=== PATIENT | male | born 1995 | race Caucasian/White ===

== ENCOUNTER 2017-04-12 22:12 | Emergency (ER) | payer OTHER ==
[~2017-04-12] VITALS: Ht 172.7 cm; Wt 64.0 kg
[2017-04-12 22:12] VITALS: TEMP 37; O2SAT 97; Ht 172.7 cm; Wt 64.0 kg
[2017-04-12] MEDS ORDERED: LIDOCAINE HCL 2% VISC SOLN 20 ML UDC PO STA (22:25)
[2017-04-12] MEDS ORDERED: SODIUM CHLORIDE 0.9% 1000ML 1,000 ML IV STA (22:25)
[2017-04-12] MEDS ORDERED: ALUMINUM/MAGNESIUM SUSP 30 ML UDC PO STA (22:25)
--- NOTE | 2017-04-12 22:42 | DIAGNOSTIC IMAGING REPORT ---
CHEST ONE VIEW PORTABLE CLINICAL HISTORY: Chest pain. COMPARISON STUDY: Chest radiograph June 30, 2016. FINDINGS: Lung volumes are normal. There is no pneumothorax or pleural effusion. Cardiac size is normal. Mediastinal contours are normal. There is no evidence of pulmonary edema. Lungs are clear. IMPRESSION: No acute cardiopulmonary findings. Electronically signed by: Efren Jack M.D. 04/12/2017 10:41 PM Dictated Date/Time: 04/12/2017 10:41 PM
[2017-04-12] MEDS ORDERED: CITA40TA12 PO (22:47)
[2017-04-12 23:02] LABS: BASO % 0.1 %; BASO ABS # 0.01 K/uL (0-0.2); COMPLETE YES; EOS % 0.8 %; HEMATOCRIT 45.2 % (42-52); IG% 0.3 %; LYMPH % 23.2 %; LYMPH ABS # 1.85 K/uL (1.2-3.4); MEAN CELL VOLUME 89.2 fL (80-100); MEAN CORPUSCULAR HEMOGLOBIN 32.1 pg (25-34); MEAN CORPUSCULAR HGB CONC 36.1 g/dl (32-36); MEAN PLATELET VOLUME 10.1 fL (7.4-10.4); MONO % 5.8 %; NEUT % 69.8 %; PLATELET COUNT 204 K/uL (130-400); RED BLOOD COUNT 5.07 M/uL (4.7-6.1); WHITE BLOOD COUNT 7.99 K/uL (4.8-10.8)
[2017-04-12 23:26] LABS: CREATININE 1.1 mg/dl (0.60-1.40); POTASSIUM 3.4 mmol/L (3.5-5.1)
[2017-04-12 23:31] LABS: CKMB/CK RATIO 0.4 (0-3.0)
[2017-04-12] MEDS ORDERED: POTASSIUM CHLORIDE 10 MEQ TABCR PO STA (23:38)
[2017-04-12] MEDS ORDERED: PANTOprazole SOD 40 MG TAB PO STA (23:39)
--- NOTE | 2017-04-12 23:39 | EMERGENCY ROOM VISIT NOTE ---
History First contact with patient: 22:15 Chief Complaint: CHEST PAIN Stated Complaint: CHEST PAIN Nursing Triage Summary: Per EMS, patient was at [facility] when he experienced crushing epigastric pain and shortness of breath. Pain lasted 5 minutes. Patient also had palpitations. 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 Patient was drinking vodka and soda today. Denies use of recreational drugs. History of Present Illness The patient is a 21 year old male who presents to the Emergency Room with complaints of sudden onset epigastric abdominal pain that lasted for about 5 minutes that is now resolved. Patient states he has been drinking more alcohol than normal this week. He is [employer] student. Patient had 3 mixed drinks just prior to the symptoms starting. He was at the bar with this pain started. Pain is currently minimal, 2 out of 10. Nothing makes it better or worse. Pain is described as discomfort. It does not radiate. Patient denies radiating pain, fever, chills, cough, congestion, back pain, lower abdominal pain, fever, chills. Review of Systems See HPI for pertinent positives & negatives. A total of 10 systems reviewed and were otherwise negative. Past Medical/Surgical History none Social History Smoking Status: Current Some Day Smoker Alcohol Use: occasionally Drug Use: none Housing Status: lives with roommate Occupation Status: [employer] student Current/Historical Medications Scheduled Citalopram Hydrobromide (Celexa), 40 MG PO DAILY Physical Exam Vital Signs Date Time Temp Pulse Resp B/P (MAP) Pulse Ox O2 Delivery O2 Flow Rate FiO2 04/12/17 23:03 76 18 138/75 98 Room Air 04/12/17 22:27 72 04/12/17 22:12 97 Room Air 04/12/17 22:12 97 Room Air 04/12/17 22:12 37.0 79 24 140/84 97 Room Air 04/12/17 22:12 97 Room Air Physical Exam VITALS: Vitals are noted on the nurse's note and reviewed by myself. Vital signs stable. GENERAL: Pleasant male with EtOH odor, in no acute distress, nondiaphoretic, well-developed well-nourished. SKIN: The skin was without rashes, erythema, edema, or bruising. There is no tenting of the skin. Capillary reflex less than 2 seconds. HEAD: Normocephalic atraumatic. EARS: External auditory canals clear, tympanic membranes pearly reese without erythema or effusion bilaterally. EYES: Pupils equal round and reactive to light and accommodation. Conjunctivae without injection, sclerae without icterus. Extraocular movements intact. NOSE: Patent, turbinates without inflammation or discharge. MOUTH: Mucous membranes moist. Pharynx without erythema or exudate. Uvula midline. Airway patent. Tongue does not deviate. NECK: Supple without nuchal rigidity. No lymphadenopathy. No thyromegaly. Cervical spine is nontender. No JVD. HEART: Regular rate and rhythm without murmurs gallops or rubs. LUNGS: Clear to auscultation bilaterally without wheezes, rales or rhonchi. No dullness to percussion. No retractions or accessory muscle use. ABDOMEN: Positive bowel sounds x 4. Normal tympanic percussion. Soft, nontender, without masses or organomegaly. Schwartz sign negative. No guarding or rebound tenderness. MUSCULOSKELETAL: No muscle atrophy, erythema, or edema noted. NEURO: Patient was alert and oriented to person place and time. Normal sensation to light and sharp touch. No focal neurological deficits. Medical Decision & Procedures Laboratory Results 04/12/17 22:45 Red Blood Count 5.07, Mean Corpuscular Volume 89.2, Mean Corpuscular Hemoglobin 32.1, Mean Corpuscular Hemoglobin Concent 36.1, Mean Platelet Volume 10.1, Neutrophils (%) (Auto) 69.8, Lymphocytes (%) (Auto) 23.2, Monocytes (%) (Auto) 5.8, Eosinophils (%) (Auto) 0.8, Basophils (%) (Auto) 0.1, Neutrophils # (Auto) 5.59, Lymphocytes # (Auto) 1.85, Monocytes # (Auto) 0.46, Eosinophils # (Auto) 0.06, Basophils # (Auto) 0.01 04/12/17 22:45 Test 04/12/17 22:45 04/12/17 22:53 White Blood Count 7.99 K/uL (4.8-10.8) Red Blood Count 5.07 M/uL (4.7-6.1) Hemoglobin 16.3 g/dL (14.0-18.0) Hematocrit 45.2 % (42-52) Mean Corpuscular Volume 89.2 fL (80-100) Mean Corpuscular Hemoglobin 32.1 pg (25-34) Mean Corpuscular Hemoglobin Concent 36.1 g/dl (32-36) Platelet Count 204 K/uL (130-400) Mean Platelet Volume 10.1 fL (7.4-10.4) Neutrophils (%) (Auto) 69.8 % Lymphocytes (%) (Auto) 23.2 % Monocytes (%) (Auto) 5.8 % Eosinophils (%) (Auto) 0.8 % Basophils (%) (Auto) 0.1 % Neutrophils # (Auto) 5.59 K/uL (1.4-6.5) Lymphocytes # (Auto) 1.85 K/uL (1.2-3.4) Monocytes # (Auto) 0.46 K/uL (0.11-0.59) Eosinophils # (Auto) 0.06 K/uL (0-0.5) Basophils # (Auto) 0.01 K/uL (0-0.2) RDW Standard Deviation 40.6 fL (36.4-46.3) RDW Coefficient of Variation 12.6 % (11.5-14.5) Immature Granulocyte % (Auto) 0.3 % Immature Granulocyte # (Auto) 0.02 K/uL (0.00-0.02) Anion Gap 9.0 mmol/L (3-11) Est Creatinine Clear Calc Drug Dose 96.2 ml/min Estimated GFR () 110.6 Estimated GFR (Non- 95.5 BUN/Creatinine Ratio 15.0 (10-20) Calcium Level 9.0 mg/dl (8.5-10.1) Total Bilirubin 1.1 mg/dl (0.2-1) Direct Bilirubin 0.3 mg/dl (0-0.2) Aspartate Amino Transf (AST/SGOT) 42 U/L (15-37) Alanine Aminotransferase (ALT/SGPT) 42 U/L (12-78) Alkaline Phosphatase 93 U/L (45-117) Total Creatine Kinase 352 U/L (39-308) Creatine Kinase MB 1.4 ng/ml (0.5-3.6) Creatine Kinase MB Ratio 0.4 (0-3.0) Total Protein 7.5 gm/dl (6.4-8.2) Albumin 4.2 gm/dl (3.4-5.0) Lipase 100 U/L (73-393) Ethyl Alcohol mg/dL 107.0 mg/dl (0-3) Bedside Troponin I < 0.030 ng/ml (0-0.045) Medications Administered Medications (Trade) Dose Ordered Sig/Sukhwinder Route Start Time Stop Time Status Last Admin Dose Admin Lidocaine HCl (Viscous Lidocaine 2% Soln) 10 ml NOW STAT PO 04/12/17 22:25 04/12/17 22:27 DC 04/12/17 23:00 10 ML Al Hydroxide/Mg Hydroxide (Maalox Susp) 30 ml NOW STAT PO 04/12/17 22:25 04/12/17 22:27 DC 04/12/17 23:00 30 ML Sodium Chloride 1,000 ml @ 999 mls/hr Q1H1M STAT IV 04/12/17 22:25 04/12/17 23:25 DC 04/12/17 23:00 999 MLS/HR ED Course Prior records/ancillary studies reviewed. Triage Nursing notes reviewed. Additional history obtained from friend The patient's history was concerning for epigastric pain. Differential diagnosis: Etiologies such as GERD, pancreatitis, cardiac ischemia, aortic dissection, pulmonary embolism, pneumonia, pneumothorax, musculoskeletal, infections, pericarditis, myocarditis, esophageal rupture, gastrointestinal, as well as others were entertained. Physical examination: As above. ER treatment provided: GI cocktail On reassessment the patient felt better. Diagnostic interpretation by me: The electrocardiogram was negative for pathologic change. Normal sinus, normal intervals, no acute ST-T wave changes. Impression normal sinus rhythm interpreted by myself The labs revealed stable H&H. Negative troponin Imaging studies: Chest x-ray with no acute consolidation, pneumothorax or free air per my interpretation and radiology Exam and history seem consistent with noncardiac chest pain. Patient felt better after the GI cocktail. Symptoms most likely are related to gastritis with his increased alcohol intake. He was advised to avoid excessive alcohol intake. He was advised to rest, stay well-hydrated and to take medications as directed. He is advised follow-up health services in a few days or here in the ER sooner for abdominal pain, chest pain, difficulty breathing, worsening signs or symptoms or as needed. By the evaluation outlined above emergent etiologies such as cardiac ischemia, aortic dissection, pulmonary embolism, pneumonia, pneumothorax, infections, pericarditis, myocarditis, as well as others were deemed relatively unlikely. The pt informed about the findings as listed above. All questions were answered and pleased with the treatment. Return instructions were outlined and the patient was discharged in stable condition. Outpatient prescription management: Protonix Referral: The patient was referred back to primary care physician for follow-up in 2 to 3 days for a recheck of the current condition. Case reviewed with my attending Medical Decision As above Medication Reconcilliation Current Medication List: was personally reviewed by me Blood Pressure Screening Patient's blood pressure: Normal blood pressure Impression Primary Impression: Non-cardiac chest pain Departure Information Dispostion Home / Self-Care Condition GOOD Referrals No Doctor, Assigned (PCP) Patient Instructions My [facility] Additional Instructions Recommend avoiding alcohol for the next week. Protonix 40 m tablet daily for next 2 weeks. Take this on an empty stomach. Try Maalox or Zantac for breakthrough symptoms for reflux. Avoid large meals. Avoid acidic foods. Rest and drink plenty of fluids as tolerated. Continue current medications. Avoid strenuous activities and anything that worsens your pain. Resume normal activities once your symptoms resolve. Return to the ER immediately for worsening or persistent chest pain, abdominal pain, black or blood in your stools, vomiting, fevers, chest pains, difficulty breathing, worsening of your condition, or as needed. Follow up with your primary physician in 2-3 days for a recheck of your current condition.
[2017-04-12] MEDS ORDERED: PANT40TA PO (23:40)
[2017-04-12 23:55] VITALS: BP 112/69; PULSE 96; O2SAT 99
== END 2017-04-12 23:55 | disposition home or self-care (01) ==
LOC: EDBD 22:12 → C.EDB 22:13
DX: R07.89 Other chest pain (principal); F17.200 Nicotine dependence, unspecified, uncomplicated